=== PATIENT | female | born 1980 | race Asian ===

== ENCOUNTER → 2016-10-29 | Outpatient (CLI) | payer OTHER | LOC: FIMAGING 06:52 | PROVIDERS: ATTEND Emergency Medicine | DX: M50.222 Other cervical disc displacement at C5-C6 level (principal); M50.30 Other cervical disc degeneration, unspecified cervical region; Q76.49 Other congenital malformations of spine, not associated with scoliosis; M54.12 Radiculopathy, cervical region; R20.2 Paresthesia of skin ==

== ENCOUNTER → 2017-12-12 | Outpatient (CLI) | payer OTHER | LOC: FIMAGING 17:59 | PROVIDERS: ATTEND Orthopaedic Surgery | DX: M24.152 Other articular cartilage disorders, left hip (principal); S73.192A Other sprain of left hip, initial encounter; S73.191A Other sprain of right hip, initial encounter ==

== ENCOUNTER 2017-12-18 05:45 | Day surgery (SDC) | payer OTHER ==
[2017-12-18] MEDS ORDERED: FAMOTIDINE 20 MG TAB PO ONE (05:48)
[2017-12-18] MEDS ORDERED: ceFAZolin 2 GM/DEXTROSE 100 ML IV ONE (05:48)
[2017-12-18] MEDS ORDERED: GABAPENTIN 300 MG CAP PO ONE (05:48)
[2017-12-18] MEDS ORDERED: ACETAMINOPHEN 325 MG TAB PO ONE (05:48)
[2017-12-18] MEDS ORDERED: LIDOCAINE 1% 2 ML INJ ID PRN (05:49)
[2017-12-18] MEDS ORDERED: LR 1,000 ML IV ONE (05:49)
[2017-12-18] MEDS ORDERED: ROPIVACAINE 0.2% 80 MG, EPINEPHrine 0.2 MG, morphINE 10 MG in SYRINGE 0 ML IU ONE (06:00)
--- NOTE | 2017-12-18 06:55 | PDHPUP ---
History & Physical Update H&P update statement: This history and physical update is based on an assessment of the patient which was completed after admission or registration (within 24 hours), but prior to the surgery/procedure. H&P update: H&P reviewed & patient examined, no change in patient's condition since H&P completed
[2017-12-18] MEDS ORDERED: MIDAZOLAM 2 MG/2 ML VIAL IVP ONE (07:01)
--- NOTE | 2017-12-18 07:01 | PDANEPAE ---
ANE History of Present Illness 37 yo for hip scope ANE Past Medical History - Cardiovascular History Hx Hypertension: No Hx Arrhythmias: No Hx Chest Pain: No Hx Coronary Artery / Peripheral Vascular Disease: No Hx CHF / Valvular Disease: No Hx Palpitations: No - Pulmonary History Hx COPD: No Hx Asthma/Reactive Airway Disease: No Hx Recent Upper Respiratory Infection: No Hx Oxygen in Use at Home: No Hx Sleep Apnea: No Sleep Apnea Screening Result - Last Documented: Negative - Neurologic History Hx Cerebrovascular Accident: No Hx Seizures: No Hx Dementia: No - Endocrine History Hx Diabetes: No - Renal History Hx Renal Disorders: No - Liver History Hx Hepatic Disorders: No - Neurological & Psychiatric Hx Hx Neurological and Psychiatric Disorders: No - Cancer History Hx Cancer: No - Congenital Disorder History Hx Congenital Disorders: No - GI History Hx Gastrointestinal Disorders: No - Other Health History Other Health History: CONGENITALLY NARROWED CANAL AND MILD DDD WAS SEEN BY DR FISHER 2016. NECK ROM OK OCCASIONAL WAKES UP WITH HANDS TINGLING. SYMPTOMS PER PATIENT ARE BETTER. RT HIP LABRAL TEAR - Chronic Pain History Chronic Pain: Yes (RT HIP) - Surgical History Prior Surgeries: WISDOM TEETH ANE Review of Systems Review of Systems: - Exercise capacity METS (RN): 5 METS ANE Patient History - Allergies Allergies/Adverse Reactions: No Known Allergies Allergy (Unverified 10/06/17 10:33) - Home Medications Home medications: home medication list seen and reviewed Home Medications: Acyclovir PRN 12/04/17 [Last Taken Unknown] Excedrin Migraine Geltab PRN 12/04/17 [Last Taken Unknown] Ibuprofen PRN 12/04/17 [Last Taken Unknown] - NPO status NPO Status: no food or drink >8 hours NPO Since - Liquids (Date): 12/18/17 NPO Since - Liquids (Time): 00:30 NPO Since - Solids (Date): 12/17/17 NPO Since - Solids (Time): 22:00 - Anes Hx Anes Hx: no prior problems - Smoking Hx Smoking Status: Never smoked - Family Anes Hx Family Hx Anesthesia Complications: NEG ANE Labs/Vital Signs - Vital Signs Blood Pressure: 111/69 Heart Rate: 67 Respiratory Rate: 14 O2 Sat (%): 98 Height: 5 ft 7 in Weight: 65.771 kg ANE Physical Exam - Airway Neck exam: FROM Mallampati Score: Class 1 Mouth exam: normal dental/mouth exam - Pulmonary Pulmonary: no respiratory distress - Cardiovascular Cardiovascular: regular rate and rhythym - ASA Status ASA Status: I ANE Anesthesia Plan Anesthesia Plan: general endotracheal anesthesia
[2017-12-18] MEDS ORDERED: fentaNYL 100 MCG/2 ML INJ ONE (07:09)
[2017-12-18] MEDS ORDERED: PROPOFOL/EMULSION 500 MG/50 ML BOTTLE IV ONE ×2 (07:09→09:09)
[2017-12-18] MEDS ORDERED: REMIFENTANIL HCL 1 MG VIAL ONE ×2 (07:09→09:08)
[2017-12-18] MEDS ORDERED: ROCURONIUM 100 MG/10 ML VIAL ONE (07:12)
[2017-12-18] MEDS ORDERED: SCOPOLAMINE HYDROBROMIDE 1 MG/3 DAYS PATCH TD SCH (07:15)
[2017-12-18] MEDS ORDERED: EPINEPHrine 1 MG/ML INJ ONE (07:33)
[2017-12-18] MEDS ORDERED: BUPIVACAINE 0.25% 30 ML SDV ONE (07:33)
[2017-12-18] MEDS ORDERED: DEXAMETHASONE 4 MG/ML VIAL ONE (07:59)
[2017-12-18] MEDS ORDERED: ONDANSETRON 4 MG/2 ML VIAL ONE (09:40)
[2017-12-18] MEDS ORDERED: KETOROLAC 30 MG/1 ML SDV ONE (09:40)
[2017-12-18] MEDS ORDERED: PROMETHAZINE HCL 25 MG/ML INJ IVP PRN (10:21)
[2017-12-18] MEDS ORDERED: HYDROmorphONE/DILAUDID 1 MG/ML INJ IVP PRN (10:21)
[2017-12-18] MEDS ORDERED: fentaNYL 100 MCG/2 ML INJ IVP PRN (10:21)
[2017-12-18] MEDS ORDERED: NALOXONE HCL 0.4 MG/ML INJ IVP PRN (10:21)
[2017-12-18] MEDS ORDERED: ONDANSETRON 4 MG/2 ML VIAL IVP PRN (10:21)
--- NOTE | 2017-12-18 10:50 | POSTANESTH ---
Post Anesthetic Evaluation Cardiovascular Status: Normal, Stable Respiratory Status: Tx Decrease in SpO2 Level of Consciousness/Mental Status: Can Participate in Eval Pain Control: Adequate, Prn Tx Ordered Nausea/Vomiting Control: Adequate, Prn Tx Ordered Complications Possibly Related to Anesthesia: None Noted
--- NOTE | 2017-12-18 10:54 | POSTOPPROG ---
Post Op Note Date of Operation: 12/18/17 Surgeon: Anmol Ayala Forest Ranger: FRANKI Trevino Anesthesiologist: MD Che Anesthesia: GET(General Endotracheal) Pre-op Diagnosis: R hip LAURENCE, labral tear, capsular laxity Post-op Diagnosis: same Procedure: R hip arthroscopy, labral repair, femoro/acetabuloplasty, capsular plicatio Inf/Abcess present in the surg proc area at time of surgery?: No EBL: Minimal (30)
--- NOTE | 2017-12-18 12:01 | GOP ---
DATE OF OPERATION: 12/18/2017 SURGEON: Anmol Ayala MD AUTO BODY CUSTOMIZER: Jhonathan Trevino, FRANKI, LSA; auction assistant was required for the procedure due to the complex nature of the procedure, the patient's condition for positioning, prepping, draping, driving the arthroscope, manipulation of instruments and closure. ANESTHESIA: General. PREOPERATIVE DIAGNOSIS: Right hip femoral acetabular impingement labral tear, snapping hip and capsular laxity. POSTOPERATIVE DIAGNOSIS: Right hip femoral acetabular impingement labral tear, snapping hip and capsular laxity, with chondral defect of the central femoral head. PROCEDURE PERFORMED: Right hip arthroscopy with labral repair, femoral plasty, acetabular plasty and capsular plication. Fluoroscopic supervision greater than 1 hour. FINDINGS: Diagnostic arthroscopy revealed a combined Seldes tear type 1 and 2 of the labrum extending from 11 to 3 o'clock. Labrum was hypertrophic, but felt to be repairable. There was ALAD grade 1 comprising of 1.5 sq cm in the acetabulum in the anterior superior zone. Remainder of the weightbearing cartilage of the acetabulum was intact. There was a 1.5 sq cm ischemic chondral defect of the femoral head from approximately 10 to 9 to 12 o'clock, 1.5 sq cm outer bridge, 3 and 4. The remainder of the cartilage in the weightbearing areas of the femur was intact. There was a pincer morphology. Ligamentum teres was intact. A small notch osteophyte. There was no laxity of the capsule consistent with micro instability. In the peripheral compartment, there was CAM morphology. SPECIMENS: None. ESTIMATED BLOOD LOSS: 30 cc. INDICATIONS: Patient had moderate to severe pain, worsened by flexion joint motion impingement test for more than 3 months. The pain has significantly limited simple activities of daily living such as walking into and out of the car, squatting and picking up an object and putting on shoes and socks. The pain has been unresponsive with 3 months of conservative treatment including activity modification, point of symptomatic motions, restrictions of athletics, medications, physical therapy. Clinically, the patient had a positive impingement, which reproduced her pain and evidence of capsular laxity. Radiographically, there is no evidence of advanced arthritis. The tone is grade 0 with intact joint space. There was no suspicion of outer bridge grade 3 or 4 cartilage damage. MRI demonstrated hypertrophic labrum with tearing. Patient is not indicated for total hip replacement given the preoperative diagnostic imaging. Diagnostic injection gave temporary relief confirming the intra-articular source of pain. Given failure to proceed with conservative measure, the patient elected to proceed with arthroscopic treatment. She verbalized understanding of the risks and benefits of the procedure and signed informed consent prior to the procedure. DESCRIPTION OF PROCEDURE: The patient is seen in the holding area. Operative site was signed. Patient was taken the operating room. After induction of general anesthesia, patient was placed supine on a [employer] tractor table with well-padded perineal post. Genitalia protected and the feet well secured. The hip was prepped and draped in the usual sterile fashion. Operative site was confirmed by signature. Operative time-out performed. Allergies reviewed. Antibiotics administered. Traction was applied to the hip under fluoroscopy. Anterolateral portal was created with an 11 blade. Spinal needle was introduced under fluoroscopy. The joint was vented to achieve further distention. Spinal needle was withdrawn and reinserted to ensure avoidance of the labrum on the femoral head. Over the guidewire technique was used to place a 70 degree arthroscope through a 4.5 mm cannula. The same over the guidewire technique was used to place a 5 mm cannula through the mid- anterior portal. Capsular release: Patricia blade was used to perform a capsular release, incising the capsule parallel to the acetabular rim to connect the 2 portals. Further joint mobilization was achieved in this fashion. Diagnostic arthroscopy: The diagnostic arthroscopy was then performed. Portals were switched frequently during all other portions of the procedure to access all parts of the joint. All parts of the joint were examined and probed into the entire labrum. Cartilage of the femur and acetabulum, ligamentum teres an acetabular fossa and the pincer lesion which was probed under fluoroscopy to define the extent of the overhang. Acetabular plasty: Acetabular plasty was undertaken. The capsule was elevated from the pincer lesion using the ablator radiofrequency wand and a 5.0 mm bur. A maximum of approximately 2 mm was trimmed from 12-3 o'clock using fluoroscopic visualization to eliminate crossover sign fluoroscopically and trim pre templated amounts of bone from the impingement part of the rim. Labral repair with a loop stitch technique. The labral repair was then undertaken using loop stitch technique. A total of 3 stitches and anchors were placed. Excellent refixation of labrum was achieved in this fashion. The labral repair was independent of the procedure and not secondary to osteoplasty and would have been necessary with or without the acetabulum plasty due to the labral tear. Femoroplasty: The damaged cartilage that was overlying the head and neck junction was removed using radiofrequency and curved shaver. The femoral plasty was performed using a 5 mm bur. This was done with extensive fluoroscopic super visualization. The hip was moved between 0 and 90 degrees of flexion in between internal-external rotation. The fluoroscope was also moved as necessary so that simultaneous arthroscopic fluoroscopic views were obtained at all times in this manner. Appropriate head and neck offset and spherical contour were created. The femoral plasty surface was then polished using a bur on reverse mode. Dynamic impingement test was performed, taking the hip to 110 degrees of flexion, maximal internal rotation, abduction. No impingement remained. Capsular plication: The capsular plication was then undertaken. Disposable cannula was placed in the mid anterior portal and the [employer] Slingshot was used to penetrate the proximal limb of the capsule. The suture was then retrieved through the distal limb of the capsule in an oblique orientation in order to create a shift and plication of the capsule using the Slingshot to pass #2 Vicryl through both limbs. This was tied outside the capsule using standard arthroscopic knot-tying technique. This was repeated for a total of 3 stitches. Excellent plication of the capsule was achieved. Plan was made for the patient to be protected from external rotation or extension for the 1st 2 weeks after surgery to protect the repair. The joint was then lavaged and suctioned dry of all fluid and all instruments were withdrawn from the joint. Portals were closed with 3-0 Monocryl. Steri-Strips and sterile dressings were applied and the hip was placed in the hip brace locked from 0-90 degrees of flexion. The patient was safely awakened, extubated , and taken to recovery room in stable condition. DRAINS: None. COMPLICATIONS: None. IMPLANTS: Arthrex 3.0 mm knotless suture tack anchors x4. TRACTION TIME: 84 minutes. POSTOPERATIVE INSTRUCTIONS: Two weeks of crutches with 20 pounds weightbearing on the operative extremity with the brace to be worn for postoperative stability for 2 weeks. Physical therapy to begin the day after surgery following all 4 phases of the protocol. Stationary bike to begin the day after surgery for a total of 8 weeks. All critical portions of the procedure performed by myself, Dr. Ayala. This operative note was created by myself, Dr. Ayala, and was immediately available for emergency cross-coverage at all times. /[id number]/MODL MTDD
[2017-12-18 12:22] VITALS: BP 118/75
== END 2017-12-18 12:20 | disposition home or self-care (01) ==
LOC: FSGY 05:45
PROVIDERS: ATTEND Orthopaedic Surgery
PROC: 0QQ64ZZ Repair Right Upper Femur, Percutaneous Endoscopic Approach (ICD-10-PCS; principal; 2017-12-18 07:15)
DX: M25.851 Other specified joint disorders, right hip (principal); M24.151 Other articular cartilage disorders, right hip
CPT/HCPCS: C1713; J0171; J0690; J1100; J1885; J2250; J2270; J2405; J2704; J2795; J3010